=== PATIENT | female | born 1960 | race Caucasian/White ===

== ENCOUNTER → 2023-04-28 11:26 | Outpatient (BNVA) | payer BC, SELFPAY | PROVIDERS: Visit Provider Family Medicine | DX: E11.9 Type 2 diabetes mellitus without complications (principal); E03.9 Hypothyroidism, unspecified; Z79.899 Other long term (current) drug therapy | CPT/HCPCS: 80053; 80061; 82043; 83036; 84443; 85025 ==

== ENCOUNTER 2023-05-01 09:44 | Outpatient (CLI) | payer BC, SELFPAY ==
--- NOTE | 2023-05-01 10:02 | MM_ITS ---
WS: [id number] BILATERAL SCREENING DIGITAL TOMOSYNTHESIS MAMMOGRAM WITH CAD HISTORY: screening COMPARISON: 09/18/2018 Bilateral CC and MLO views with tomosynthesis and synthetic mammography submitted. Computer aided det ection analyzed. Breast composition: There are scattered areas of fibroglandular density. No suspicious masses, microc alcifications or architectural distortion. Coarse benign calcification in the mid RIGHT breast. IMPRESSION: MM/[place] [id number] BI-RADS: 2-Benign FOLLOW UP: 1 Year Follow-up
== END 2023-05-01 09:45 | disposition home or self-care (01) ==
LOC: RAD 09:45
PROVIDERS: PCP Family Medicine; Visit Provider Family Medicine
DX: Z12.31 Encounter for screening mammogram for malignant neoplasm of breast (principal); R92.323 Mammographic fibroglandular density, bilateral breasts; R92.1 Mammographic calcification found on diagnostic imaging of breast
CPT/HCPCS: 77063; 77067

== ENCOUNTER → 2023-07-20 09:38 | Outpatient (BNVA) | payer BC, SELFPAY | PROVIDERS: PCP Family Medicine; Visit Provider Family Medicine | DX: E11.9 Type 2 diabetes mellitus without complications (principal); E06.3 Autoimmune thyroiditis; Z13.6 Encounter for screening for cardiovascular disorders; E78.5 Hyperlipidemia, unspecified; R55 Syncope and collapse; Z79.899 Other long term (current) drug therapy | CPT/HCPCS: 80053; 80061; 83036; 84443; 93005 ==

== ENCOUNTER → 2024-04-07 15:17 | Outpatient (BNVA) | payer BC, SELFPAY | PROVIDERS: PCP Family Medicine; Visit Provider Family Medicine | DX: E11.9 Type 2 diabetes mellitus without complications (principal); E78.5 Hyperlipidemia, unspecified; E06.3 Autoimmune thyroiditis | CPT/HCPCS: 80053; 80061; 83036; 84439; 84443; 85025 ==

== ENCOUNTER 2024-08-08 11:59 | Outpatient (CLI) | payer BC, SELFPAY | END 2024-08-08 12:00 | disposition home or self-care (01) | LOC: LAB 12:01 | PROVIDERS: PCP Family Medicine; Visit Provider Family Medicine | DX: I10 Essential (primary) hypertension (principal); E11.9 Type 2 diabetes mellitus without complications; E06.3 Autoimmune thyroiditis | CPT/HCPCS: 80053; 83036; 84439; 84443; 85025 ==

== ENCOUNTER 2025-03-10 12:23 | Outpatient (CLI) | payer BC, SELFPAY ==
--- NOTE | 2025-03-10 12:41 | XR_ITS ---
WS: [id number] XR cervical spine 3V* [id number] REASON FOR EXAM: chronic neck pain FINDINGS: Mild straightening of the normal lordosis. No focal lesion or significant compression deformity of the cervical vertebrae. Disc spaces are intact and relatively well preserved. Mild to moderate anterior osteophytosis of C4 and C5. Mild posterior osteophytosis. No significant listhesis. Mild calcified plaque in the carotid arteries bilaterally. XR/XR cervical spine 3V* [id number] IMPRESSION: Mild degenerative spondylosis.
== END 2025-03-10 12:24 | disposition home or self-care (01) ==
PROVIDERS: PCP Family Medicine; Visit Provider Family Medicine
DX: E06.3 Autoimmune thyroiditis (principal); E11.9 Type 2 diabetes mellitus without complications; M25.78 Osteophyte, vertebrae; M47.812 Spondylosis without myelopathy or radiculopathy, cervical region; I65.23 Occlusion and stenosis of bilateral carotid arteries
CPT/HCPCS: 72040; 80053; 83036; 84439; 84443; 85025